=== PATIENT | female | born 1985 | race Caucasian/White ===

== ENCOUNTER → 2018-09-11 16:52 | Outpatient (CLI) | payer SELFPAY ==
[2018-09-11 15:06] VITALS: BMI 22.6
[2018-09-11 19:35] LABS: Chlamydia Trachomatis by PCR Negative (Negative); Neisserai gonorrhoeae by PCR Negative (Negative); Probe Check PASS; Sample Adequacy Control PASS; Specimen Processing Control PASS
[2018-09-17 03:06] LABS: HPV Genotype 16, Aptima Negative (Negative)
[2018-09-17 15:23] LABS: HPV APTIMA, High Risk Positive (Negative); HPV Genotype 18,45 Aptima Negative (Negative)
== END ==
PROVIDERS: Referring Provider Nurse Practitioner Women's Health; Visit Provider Nurse Practitioner Women's Health
DX: Z12.4 Encounter for screening for malignant neoplasm of cervix (principal); Z11.3 Encounter for screening for infections with a predominantly sexual mode of transmission
CPT/HCPCS: 87491; 87591; 87624; 88175; G0145

== ENCOUNTER → 2019-10-31 17:34 | Outpatient (CLI) | payer SELFPAY ==
[2018-09-11 15:06] VITALS: BMI 22.6
[2019-10-31 18:05] LABS: Absolute Lymphocyte Count 2.22 X10^3/uL (0.83-4.51); Absolute Neutrophil Count 4.2 X10^3/uL (2.0-7.7); Basophil% 1.4 % (0-1); Eosinophil# 0.08 X10^3/uL; Eosinophils% 1.1 % (0-5); Hematocrit 30.7 % (37-47); Hemoglobin 8.6 g/dL (12.0-15.0); Lymphocyte # 2.22 X10^3/ul (4.0); Mean Corpuscular Hgb 19.5 pg (27.0-32.0); Mean Corpuscular Volume 69.8 fL (81-99); NRBC Flagged by Analyzer 0 % (0-5); Neutrophil # 4.22 X10^3/uL (2.7-7.7); Neutrophil % 59.1 % (47-70); Platelet Count 399 K/mm3 (150-450); RBC Distribution Width CV 19.7 % (11.6-14.6); RBC Distribution Width SD 46.8 fl (35.1-43.9); White Blood Count 7.2 K/mm3 (4.4-11.0)
[2019-10-31 18:22] LABS: ALB/GLOB Ratio 0.9 RATIO (0.9-2.4); AST(SGOT) 14 U/L (15-37); Alanine Aminotransfer ALT/SGPT 19 U/L (13-56); Alkaline Phosphatase 39 U/L (45-117); Anion Gap 6 (5-15); BUN 10 mg/dL (7-18); BUN/Creat Ratio 12.6 RATIO (10-20); Calcium,Total 9.1 mg/dL (8.5-10.1); Chloride 108 mmol/L (98-107); Cholesterol 213 mg/dL (200); Creatinine, Serum 0.79 mg/dL (0.55-1.02); EST Glomerular Filtration Rate 87 mL/min (>60); Est Glom Filt Rate - Afr Amer 106 mL/min (>60); Globulin 4.4 g/dL (2.2-4.2); Glucose 95 mg/dL (74-106); High Density Lipoprotein 96 mg/dL; Iron 12 ug/dL (50-170); Potassium 3.7 mmol/L (3.5-5.1); Protein, Total 8.4 g/dL (6.4-8.2); Sodium Level 139 mmol/L (136-145); Thyroid Stim Hormone (TSH) 1.54 uIU/mL (0.358-3.74); Triglycerides 88 mg/dL; Very Low Density Lipoprotein 18 mg/dL (5-40)
== END ==
PROVIDERS: PCP Family Medicine; Referring Provider Family Medicine; Visit Provider Family Medicine
DX: L65.9 Nonscarring hair loss, unspecified (principal)
CPT/HCPCS: 36415; 80053; 80061; 83540; 84443; 85025

== ENCOUNTER → 2019-11-19 11:20 | Outpatient (CLI) | payer SELFPAY ==
[2018-09-11 15:06] VITALS: BMI 22.6
--- NOTE | 2019-11-19 11:28 | US_ITS ---
STUDY: ULTRASOUND OF THE FEMALE PELVIS - COMPLETE REASON FOR EXAM: Female, 34 years old. MENORRHAGIA CHRONIC LOW HEMOGLOBIN ANEMIA LMP: October 19, 2019. TECHNIQUE: Transabdominal and Transvaginal TECHNICAL QUALITY: Adequate. COMPARISON: None. FINDINGS: The uterus is anteverted and is in a midline position. The uterus measures 10.5 cm x 6.3 cm x 5.0 cm. There is a Nabothian cyst of the cervix. The endometrium measures 12 mm in thickness, and is hyperechoic. There is no demonstrated endometrial mass. 2 small uterine fibroids are seen measuring less than 1 cm. I.U.D. - The patient does not have an I.U.D. The right ovary is visualized. The right ovary measures 3.1 cm x 3.1 cm x 2.0 cm. There is no right ovarian cyst or ovarian mass. There is no visualized right adnexal mass or complex lesion. There is normal arterial and normal venous vascularity. The left ovary is visualized. The left ovary measures 3.4 cm x 3 cm x 2.4 cm. There is no left ovarian cyst or ovarian mass. There is no visualized left adnexal mass or complex lesion. There is normal arterial and normal venous vascularity. There is no fluid in the cul-de-sac. Polycystic ovary disease: No. US/Transvaginal Non- IMPRESSION: There are 2 subcentimeter uterine fibroids. Electronically Signed: Kuldeep Carrera, at 14:22 EDT , Service support ,
--- NOTE | 2019-11-19 11:28 | US_ITS ---
STUDY: ULTRASOUND OF THE FEMALE PELVIS - COMPLETE REASON FOR EXAM: Female, 34 years old. MENORRHAGIA CHRONIC LOW HEMOGLOBIN ANEMIA LMP: October 19, 2019. TECHNIQUE: Transabdominal and Transvaginal TECHNICAL QUALITY: Adequate. COMPARISON: None. FINDINGS: The uterus is anteverted and is in a midline position. The uterus measures 10.5 cm x 6.3 cm x 5.0 cm. There is a Nabothian cyst of the cervix. The endometrium measures 12 mm in thickness, and is hyperechoic. There is no demonstrated endometrial mass. 2 small uterine fibroids are seen measuring less than 1 cm. I.U.D. - The patient does not have an I.U.D. The right ovary is visualized. The right ovary measures 3.1 cm x 3.1 cm x 2.0 cm. There is no right ovarian cyst or ovarian mass. There is no visualized right adnexal mass or complex lesion. There is normal arterial and normal venous vascularity. The left ovary is visualized. The left ovary measures 3.4 cm x 3 cm x 2.4 cm. There is no left ovarian cyst or ovarian mass. There is no visualized left adnexal mass or complex lesion. There is normal arterial and normal venous vascularity. There is no fluid in the cul-de-sac. Polycystic ovary disease: No. US/Pelvic (Non ) IMPRESSION: There are 2 subcentimeter uterine fibroids. Electronically Signed: Kuldeep Carrera, at 14:22 EDT , Service support ,
== END ==
PROVIDERS: PCP Family Medicine; Referring Provider Nurse Practitioner Women's Health; Visit Provider Nurse Practitioner Women's Health
DX: N92.0 Excessive and frequent menstruation with regular cycle (principal); D64.9 Anemia, unspecified; D25.9 Leiomyoma of uterus, unspecified
CPT/HCPCS: 76830; 76856

== ENCOUNTER → 2020-02-11 | Outpatient (CLI) | payer SELFPAY ==
--- NOTE | 2020-02-11 | EMB_PTH ---
PATIENT: DALLAS DAVIDSON LOC: [facility] U#:[id number] AGE/SX: 34/F ROOM: RE02/11/[address]: BRYAN Santamaria : 1985 BED: DIS: 02/11/2020 SPEC #: [id number] RECD: 02/11/20 07:50 STATUS: MATHIEU HELM #: [id number] NOMI: 02/11/20 00:[address]: Michelle Bailon NP DEPT: SURGICAL PATHOLOGY RECD BY: Walker Bennett ENTERED: 02/12/20 07:50 SP TYPE: ENDOM BX/C SASHA DR: Dr. Emilio Saenz MD Tissues: Endometrium, NOS Procedures: Surgery Specimen Level IV HEADER OPERATION: Endometrial biopsy PRE-OP DIAGNOSIS: Abnormal uterine bleeding TISSUE SUBMITTED: Endometrial lining MICROSCOPIC DIAGNOSIS Endometrial biopsy: Proliferative endometrium. Chronic endometritis. Fragments of benign endocervical mucosa. SJ:eddie 02/13/20 COMMENT Case has been reviewed in consultation with Dr. Zambrano who concurs with the above diagnosis. IDC:AM MICROSCOPIC DESCRIPTION Slides are reviewed. GROSS DESCRIPTION Received is one container labeled with the patient's name and not further designated. The specimen consists of multiple fragments of hemorrhagic soft tissue that in aggregate measure 3 x 2.5 x 0.3 cm. The specimen is totally submitted in one cassette. / PALOMA:eddie 02/12/20 TC:3 CPT: 96096
[2020-02-11 11:31] VITALS: BMI 22.4
[2020-02-19 03:06] LABS: HPV Genotype 16, Aptima Negative (Negative)
[2020-02-20 13:49] LABS: HPV APTIMA, High Risk Positive (Negative); HPV Genotype 18,45 Aptima Negative (Negative)
== END | disposition home or self-care (01) ==
LOC: LABSPEC 15:41
PROVIDERS: PCP Family Medicine; Referring Provider Nurse Practitioner Women's Health; Visit Provider Nurse Practitioner Women's Health
DX: R87.810 Cervical high risk human papillomavirus (HPV) DNA test positive (principal); N85.8 Other specified noninflammatory disorders of uterus
CPT/HCPCS: 87624; 88175; 88305; G0145

== ENCOUNTER → 2020-05-12 12:35 | Outpatient (CLI) | payer SELFPAY ==
[2020-05-12 12:20] VITALS: BMI 22.6
[2020-05-12 13:57] LABS: HIV - WCH Non-Reactive (Nonreactive)
[2020-05-13 07:38] LABS: Rapid Plasmin Reagin (RPR) REACTIVE (NONREACTIVE)
[2020-05-13 08:36] LABS: HSV 2 IgG < 0.91 index (0.00-0.90)
[2020-05-15 03:06] LABS: Chlamydia By Nucleic Acid AMP Negative (Negative)
[2020-05-15 08:11] LABS: Gonococcus By Nucleic Acid AMP Negative (Negative)
== END ==
PROVIDERS: PCP Family Medicine; Referring Provider Nurse Practitioner Women's Health; Visit Provider Nurse Practitioner Women's Health
DX: Z11.3 Encounter for screening for infections with a predominantly sexual mode of transmission (principal)
CPT/HCPCS: 36415; 86592; 86695; 86696; 86703; 87491; 87591

== ENCOUNTER → 2020-05-13 08:53 | Outpatient (CLI) | payer SELFPAY ==
[2020-05-12 12:20] VITALS: BMI 22.6
[2020-05-17 16:08] LABS: Dilute Russell Viper Venom 47.9 sec (0.0-47.0); PTT-LA 31.8 sec (0.0-51.9); Thrombin Time 17.4 sec (0.0-23.0); dPT Confirm Ratio 0.92 Ratio (0.00-1.40)
[2020-05-17 17:13] LABS: Anti-Cardiolipin Ab, IgA, Qn < 9 APL U/mL (0-11); Anti-Cardiolipin Ab, IgG, Qn < 9 GPL U/mL (0-14); Anti-Cardiolipin Ab, IgM, Qn > 150 MPL U/mL (0-12); Beta-2-Glycoprotein I IgA <9 (0-25); Beta-2-Glycoprotein I IgG <9 (0-20); Beta-2-Glycoprotein I IgM >150 (0-32); Interpretation Comment: (.)
== END ==
PROVIDERS: PCP Family Medicine; Referring Provider Nurse Practitioner Women's Health; Visit Provider Nurse Practitioner Women's Health
DX: Z20.2 Contact with and (suspected) exposure to infections with a predominantly sexual mode of transmission (principal)
CPT/HCPCS: 36415; 86146; 86147

== ENCOUNTER → 2020-12-29 | Outpatient (CLI) | payer OTHER, SELFPAY ==
[2020-12-29 09:01] VITALS: BMI 22.9
[2021-01-03 12:30] LABS: HSV Culture Without Typing Positive (.)
== END | disposition home or self-care (01) ==
LOC: LABSPEC 12:15
PROVIDERS: PCP Family Medicine; Referring Provider Nurse Practitioner Women's Health; Visit Provider Nurse Practitioner Women's Health
DX: N90.89 Other specified noninflammatory disorders of vulva and perineum (principal)
CPT/HCPCS: 87255

== ENCOUNTER → 2021-02-04 08:30 | Outpatient (CLI) | payer OTHER, SELFPAY ==
[2020-12-29 09:01] VITALS: BMI 22.9
[2021-02-04 09:00] LABS: Absolute Lymphocyte Count 2.21 X10^3/uL (0.83-4.51); Absolute Neutrophil Count 5.1 X10^3/uL (2.0-7.7); Basophil# 0.05 X10^3/uL; Basophil% 0.6 % (0-1); Eosinophil# 0.13 X10^3/uL; Eosinophils% 1.6 % (0-5); Hematocrit 42.3 % (37-47); Hemoglobin 13.4 g/dL (12.0-15.0); Lymphocyte # 2.21 X10^3/ul (0.83-4.51); Lymphocyte % 27.6 % (19-41); Mean Corp Hgb Conc 31.7 g/dL (32-36); Mean Corpuscular Hgb 28.9 pg (27.0-32.0); Mean Corpuscular Volume 91.4 fL (81-99); Mean Platelet Vol. 11.5 fl (6.2-12.0); Monocyte# 0.51 X10^3/uL; Monocyte% 6.4 % (0-10); NRBC Flagged by Analyzer 0 % (0-5); Neutrophil # 5.09 X10^3/uL (2.7-7.7); Neutrophil % 63.4 % (47-70); Platelet Count 333 K/mm3 (150-450); RBC Distribution Width CV 14.9 % (11.6-14.6); RBC Distribution Width SD 49.6 fl (35.1-43.9); Red Blood Count 4.63 M/mm3 (4.2-5.4)
[2021-02-04 09:18] LABS: ALB/GLOB Ratio 0.9 RATIO (0.9-2.4); AST(SGOT) 12 U/L (15-37); Alanine Aminotransfer ALT/SGPT 17 U/L (13-56); Albumin, Serum 3.7 g/dL (3.2-5.0); Alkaline Phosphatase 35 U/L (45-117); Anion Gap 8 (5-15); BUN 11 mg/dL (7-18); BUN/Creat Ratio 12.7 RATIO (10-20); Chloride 106 mmol/L (98-107); Creatinine, Serum 0.86 mg/dL (0.55-1.02); EST Glomerular Filtration Rate 78 mL/min (>60); Est Glom Filt Rate - Afr Amer 95 mL/min (>60); Ferritin 21 ng/mL (8-252); Globulin 4.1 g/dL (2.2-4.2); Glucose 78 mg/dL (74-106); Iron 74 ug/dL (50-170); Iron Binding Capacity,Total 359 ug/dL (250-450); LDH 158 U/L (84-246); PERCENT IRON SATURATION 20.6 % (15.0-55.0); Potassium 4.1 mmol/L (3.5-5.1); Protein, Total 7.8 g/dL (6.4-8.2); Sodium Level 140 mmol/L (136-145)
[2021-02-04 16:54] LABS: Xtra Tube EP Lab EXTRA TUBE
[2021-02-05 17:07] LABS: Anti-Cardiolipin Ab, IgA, Qn < 9 APL U/mL (0-11); Anti-Cardiolipin Ab, IgG, Qn < 9 GPL U/mL (0-14); Anti-Cardiolipin Ab, IgM, Qn > 150 MPL U/mL (0-12)
== END ==
PROVIDERS: PCP Family Medicine; Referring Provider Internal Medicine Medical Oncology; Visit Provider Internal Medicine Medical Oncology
DX: R76.0 Raised antibody titer (principal); E61.1 Iron deficiency
CPT/HCPCS: 36415; 80053; 82728; 83540; 83550; 83615; 85025; 86147

== ENCOUNTER → 2021-02-24 12:05 | Outpatient (CLI) | payer OTHER, SELFPAY ==
[2021-02-24 11:36] VITALS: BMI 23.6
[2021-02-24 12:44] LABS: Prothrombin Time (Protime)PT. 12.5 SECONDS (11.7-14.9)
[2021-02-24 12:45] LABS: Partial Thromboplast Time 27.4 Seconds (24.1-36.2)
[2021-02-24 12:47] LABS: D-Dimer Quantitative (DVT/PE) 0.49 FEU/ug/m (0.27-0.49)
[2021-02-25 18:40] LABS: Treponema palladium Ab (FTA) Non Reactive (Non Reactive)
== END ==
PROVIDERS: PCP Family Medicine; Visit Provider Internal Medicine Medical Oncology
DX: R94.8 Abnormal results of function studies of other organs and systems (principal)
CPT/HCPCS: 36415; 85379; 85610; 85730; 86780

== ENCOUNTER → 2021-05-31 11:00 | Outpatient (CLI) | payer OTHER, SELFPAY ==
--- NOTE | 2021-05-31 11:01 | CT_ITS ---
STUDY: CT ABDOMEN AND PELVIS WITHOUT CONTRAST REASON FOR EXAM: Female, 35 years old. R/o kidney stones. Low back pain with radiation to the flank. RADIATION DOSAGE (If Supplied By Facility): CTDIvol = ( 6.32 ) mGy, DLP = ( 315.91 ) mGycm TECHNIQUE: Transaxial images were obtained from the dome of the diaphragm to the symphysis pubis without oral contrast, and without intravenous contrast. Sagittal and coronal images were reconstructed. Individualized dose optimization techniques were used for this CT. COMPARISON: None. FINDINGS: The visualized lung bases are unremarkable. The visualized portions of the heart are within normal limits. Normal liver. Normal gallbladder and extrahepatic biliary system. Normal spleen. Normal pancreas. Normal bilateral adrenal glands. Normal right kidney. Normal left kidney. Normal visualized stomach. Normal small intestine. Normal colon. The appendix is visualized and appears normal. Normal abdominal aorta. Normal inferior vena cava. Normal retroperitoneum. Normal urinary bladder. Small follicles are seen in the right ovary. There is a small umbilical hernia containing fat. Normal osseous structures. CT/Abdomen/Pelvis without Cont IMPRESSION: Normal unenhanced CT of the abdomen and pelvis. Electronically Signed: Kuldeep Carrera MD at 11:25 EDT , Service support ,
[2021-05-31 11:29] LABS: Absolute Lymphocyte Count 1.81 X10^3/uL (0.83-4.51); Absolute Neutrophil Count 4.7 X10^3/uL (2.0-7.7); Basophil# 0.05 X10^3/uL; Basophil% 0.7 % (0-1); Eosinophil# 0.11 X10^3/uL; Eosinophils% 1.5 % (0-5); Hematocrit 41.8 % (37-47); Hemoglobin 13.7 g/dL (12.0-15.0); Lymphocyte # 1.81 X10^3/ul (0.83-4.51); Lymphocyte % 25.5 % (19-41); Mean Corp Hgb Conc 32.8 g/dL (32-36); Mean Corpuscular Hgb 30.6 pg (27.0-32.0); Mean Corpuscular Volume 93.3 fL (81-99); Mean Platelet Vol. 11.3 fl (6.2-12.0); Monocyte# 0.39 X10^3/uL; Monocyte% 5.5 % (0-10); NRBC Flagged by Analyzer 0 % (0-5); Neutrophil # 4.73 X10^3/uL (2.7-7.7); Neutrophil % 66.5 % (47-70); Platelet Count 283 K/mm3 (150-450); RBC Distribution Width CV 13.7 % (11.6-14.6); Red Blood Count 4.48 M/mm3 (4.2-5.4); White Blood Count 7.1 K/mm3 (4.4-11.0)
[2021-05-31 11:42] LABS: Anion Gap 8 (5-15); BUN 11 mg/dL (7-18); BUN/Creat Ratio 14.8 RATIO (10-20); Calcium,Total 9.2 mg/dL (8.5-10.1); Chloride 104 mmol/L (98-107); Creatinine, Serum 0.74 mg/dL (0.55-1.02); EST Glomerular Filtration Rate 93 mL/min (>60); Est Glom Filt Rate - Afr Amer 113 mL/min (>60); Glucose 101 mg/dL (74-106); Sodium Level 139 mmol/L (136-145)
== END ==
PROVIDERS: PCP Family Medicine; Referring Provider Obstetrics & Gynecology; Visit Provider Obstetrics & Gynecology
DX: M54.50 Low back pain, unspecified (principal); R10.9 Unspecified abdominal pain
CPT/HCPCS: 36415; 74176; 80048; 85025; 87077; 87086; 87088

== ENCOUNTER → 2022-02-02 | Outpatient (CLI) | payer OTHER, SELFPAY ==
--- NOTE | 2022-02-02 12:00 | US_ITS ---
STUDY: ULTRASOUND OF THE FEMALE PELVIS - COMPLETE REASON FOR EXAM: Female, 36 years old. aub LMP: 01/13/2022 TECHNIQUE: Transabdominal and Transvaginal TECHNICAL QUALITY: Adequate. COMPARISON: Comparison is made with prior study dated 11/19/2019. FINDINGS: The uterus is anteverted and is in a midline position. The uterus measures 10.3 cm x 8.8 cm x 5.4 cm. Normal uterine cervix. The endometrium measures 16 mm in thickness, and is hyperechoic. There is no demonstrated endometrial mass. Heterogeneous echotexture of the uterine myometrium. Several fibroids are seen. The largest measures 2.2 cm x 2.4 cm x 1.9 cm. I.U.D. - The patient does not have an I.U.D. The right ovary is visualized. The right ovary measures 3.4 cm x 2.2 cm x 2.2 cm. There is no right ovarian cyst or ovarian mass. There is no visualized right adnexal mass or complex lesion. There is normal arterial and normal venous vascularity. The left ovary is visualized. The left ovary measures 2.9 cm x 2.8 cm x 2.8 cm. There is no left ovarian cyst or ovarian mass. There is no visualized left adnexal mass or complex lesion. There is normal arterial and normal venous vascularity. There is no fluid in the cul-de-sac. The pre void volume of the bladder was 449 ml. US/Pelvic (Non ) IMPRESSION: Enlarged heterogeneous uterus with multiple small fibroids. Electronically Signed: Kuldeep Carrera MD at 13:35 EDT ,
--- NOTE | 2022-02-02 12:00 | US_ITS ---
STUDY: ULTRASOUND OF THE FEMALE PELVIS - COMPLETE REASON FOR EXAM: Female, 36 years old. aub LMP: 01/13/2022 TECHNIQUE: Transabdominal and Transvaginal TECHNICAL QUALITY: Adequate. COMPARISON: Comparison is made with prior study dated 11/19/2019. FINDINGS: The uterus is anteverted and is in a midline position. The uterus measures 10.3 cm x 8.8 cm x 5.4 cm. Normal uterine cervix. The endometrium measures 16 mm in thickness, and is hyperechoic. There is no demonstrated endometrial mass. Heterogeneous echotexture of the uterine myometrium. Several fibroids are seen. The largest measures 2.2 cm x 2.4 cm x 1.9 cm. I.U.D. - The patient does not have an I.U.D. The right ovary is visualized. The right ovary measures 3.4 cm x 2.2 cm x 2.2 cm. There is no right ovarian cyst or ovarian mass. There is no visualized right adnexal mass or complex lesion. There is normal arterial and normal venous vascularity. The left ovary is visualized. The left ovary measures 2.9 cm x 2.8 cm x 2.8 cm. There is no left ovarian cyst or ovarian mass. There is no visualized left adnexal mass or complex lesion. There is normal arterial and normal venous vascularity. There is no fluid in the cul-de-sac. The pre void volume of the bladder was 449 ml. US/Transvaginal Non- IMPRESSION: Enlarged heterogeneous uterus with multiple small fibroids. Electronically Signed: Kuldeep Carrera MD at 13:35 EDT ,
== END | disposition home or self-care (01) ==
LOC: OPUS 11:57
PROVIDERS: PCP Family Medicine; Visit Provider Obstetrics & Gynecology
DX: N93.9 Abnormal uterine and vaginal bleeding, unspecified (principal); D25.1 Intramural leiomyoma of uterus
CPT/HCPCS: 76830; 76856

== ENCOUNTER 2022-03-07 11:54 | Observation (INO) | payer OTHER, SELFPAY ==
--- NOTE | 2022-03-06 16:05 | PCM.HP.BLA ---
History and Physical Intake Vital Signs ? 01/12/2213:53 02/23/2211:30 02/23/2211:34 Height 5 ft 6 in 5 ft 6 in 5 ft 6 in Weight: ? 142 lb 2 oz ? BMI ? 22.9 ? BP ? 128/76 H ? Intake Visit Reasons:?Pre op Allergies No Known Allergies Allergy (Verified 02/23/22 11:30) Medications ferrous sulfate 325 mg (65 mg iron) tablet 325 mg PO DAILY 04/07/20 [History Confirmed 02/23/22] valacyclovir 500 mg tablet (Valtrex) 500 mg PO DAILY #30 tabs 05/25/21 [Rx Confirmed 02/23/22] enoxaparin 40 mg/0.4 mL subcutaneous syringe (Lovenox) 40 mg (0.4 mL) subcut QDAY 30 days #12 mL 02/23/22 [Rx Confirmed 02/23/22] naproxen 500 mg tablet 500 mg PO BID-TID PRN pain #30 tabs 02/23/22 [Rx Confirmed 02/23/22] oxycodone-acetaminophen 5 mg-325 mg tablet (Percocet) 1 tab PO Q6H 7 days #10 tabs 02/23/22 [Rx Confirmed 02/23/22] Is last menstrual period known: Yes Last Menstral Period: 02/07/22 Post menopausal: No Patient : No : No [facility] Medical History? HPV test positive Vulvar lesion Surgical History? S/P Family History? Mother Hypertension Diabetes Social History? Smoking Status:? Never smoker alcohol intake:? current details:? weekends-2 beers substance use type:? does not use caffeine:? Yes what type of physical activity do you participate in:? running and other details: spinning frequency:? 3-4 times per week duration:? 45-60 minutes/day seatbelt use:? always do you feel safe at home:? Yes additional social history:? ? Patient works in lab at [employer] Pre op Details: DALLAS DAVIDSON is a 36 year old who presents for preop visit.? she had 1 cs and 10 cm uterus with 2 cm fibroid. Female Reproductive History Last Menstral Period: 02/07/22 Cycle Length: 21-35 Bleeding Duration: 7 Frequency of changing protection: hour associated symptoms: cramping Questions: metorrhagia: No, sexually active: Yes, dyspareunia: No and PCB: No Menopausal Symptoms: No hot flashes, No night sweats, No weight change, No mood changes, No difficulty concentrating, No sleep problems and No change in libido Pregancy History ? ? ? 2 ? Elective abortions ? Hx Para ? ? ? 2 ? Spontaneous abortions ? Hx # Term Pregnancies ? Ectopic pregnancies ? Hx # Pregnancies ? Multiple births ? # of living children ? Past Pregnancies Del. Date Name GA/Weeks Outcome Route Bth Weight Infant Gen Labor Lgth Anesthesia Del Locatn Provider FOB Unknown More-2009 ? Unknown Beatriz-2011 ? ROS Const Constitutional: Denies night sweats ENT ENT: Reports system reviewed and no additional complaints, except as documented Cardio Card: Denies chest pain Resp Resp: Denies cough or dyspnea GI GI: Reports as per HPI; Denies constipation, nausea or vomiting : Denies hot flashes or nipple discharge Musc Musc: Denies arthralgias, back pain or muscle weakness Skin Skin/Breast: Denies alopecia, change in hair, dry skin, breast mass, breast pain, breast skin changes or nipple discharge Neuro Neuro: Reports system reviewed and no additional complaints, except as documented Psych Psych: Denies change in libido or difficulty concentrating Endo Endo: Denies cold intolerance, excessive sweating, heat intolerance or polydipsia Familia/Lymph Hematologic/Lymphatic: Denies easy bleeding, Denies easy bruising and Denies lymphadenopathy Exam Const General: cooperative, healthy appearing, comfortable, no acute distress and well developed Orientation: alert [facility] Head: normal to inspection and normocephalic Ears: hearing grossly normal bilaterally and external ears normal Nose: external nose normal and nares normal Face and sinus: normal facial exam Neck Neck: normal visual inspection and no lymphadenopathy Thyroid: thyroid normal Chest Chest palpation & inspection: normal inspection of the chest Resp Effort & Inspection: normal respiratory effort Auscultation: clear to auscultation bilaterally Cardio Rate: regular rate Rhythm: regular rhythm Heart Sounds: S1 normal and S2 normal GI Inspection: normal to inspection and non-distended Palpation: soft and no hepatosplenomegaly General: bladder normal to palpation External Female Exam: normal external appearance and normal appearance of the urethra Urethra: normal appearance of the urethra, normal palpation and no discharge Speculum Exam - Vagina: normal appearance of the vagina and normal vaginal discharge Speculum Exam - Cervix: normal appearance of the cervix and nontender Bimanual Exam- Vagina & Uterus: normal bimanual exam, uterine size normal, bladder normal to palpation, uterine shape normal, No tender, uterine mobility normal, consistency normal, normal palpation and non-tender Bimanual Exam- Adnexa, other: normal adnexae, adnexae mobile, no masses and normal Pelvic Support: normal Musc Other: gross motor intact no deficits, full bilateral strength Skin General: no rashes or lesions noted Neuro General: patient alert, patient awake, moves all extremities and no focal motor deficits Motor: muscle tone normal throughout Extrem General: normal to inspection and no pedal edema Psych Appearance: grossly normal Mental Status: mental status grossly normal Affect: normal affect Speech and Movement: speech and movement normal Coding Level of Care Code No Charge Diagnoses Anti-cardiolipin antibody positive? R76.0 Abnormal uterine bleeding? N93.9 Intramural uterine fibroid? 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 PT/PTT, Fibrinogen level, D-dimers, SPEP, Cryoglobulin levels are normal. Positive RPR (2) Abnormal uterine bleeding: ?Status:?Acute ?Comment: plan LAVHBS cysto failed ocp.? 10cm uterus, 1 previous cs.? plan overnight stay (3) Intramural uterine fibroid: ?Status:?Acute ? ? ? Medications: New enoxaparin (Lovenox) 40 mg (0.4 mL) subcut QDAY 30 days 12 mL 12RF ? ? naproxen ?? administer with food or milk 500 mg? PO BID-TID PRN 30 tabs 2RF pain N93.9 - Abnormal uterine and vaginal bleeding, unspecified ? oxycodone-acetaminophen 5-325 mg (Percocet) 1 TAB? PO Q6H 7 days 10 tabs 0RF R10.2 - Pelvic and perineal pain ? Plan After discussing the patient's diagnosis and treatment plan options, patient wishes to proceed with surgical management.? I have discussed with the patient the risks, benefits, and alternatives of the procedure which include but are not limited to risks of anesthesia, bleeding, infection, possible damage to bowel, bladder, or surrounding vasculature which could lead to additional surgery to evaluate any complications.? Patient agrees to procedure and wishes to proceed.? ACOG/uptodate references given for additional information regarding procedure.? UPDATE- I have seen the patient and performed any clinically relevant updates to the history and physical exam. Debbie Robledo MD
[2022-03-07] VITALS (15 sets, daily range): BP systolic 101–122; BP diastolic 57–81; PULSE 60–82; RESP 16; TEMP 36.1–37.6; O2SAT 93–100; BMI 23.1
[2022-03-07] MEDS: Enoxaparin 40 MG/0.4 ML Syringe SC (07:30)
[2022-03-07] MEDS: Scopolamine 1mg/72hr Patch 1 PATCH TD (07:30)
[2022-03-07] MEDS: Lactated Ringers 1,000 ML 40 ML IV ×2 (07:30→11:16)
[2022-03-07] MEDS: dexAMETHasone 10 MG/ML Vial 8 MG IV (07:30)
[2022-03-07 09:00] LABS: Internal QC Validated? YES +Cl - CLEAR BKGD; Pregnancy, Urine Negative Negative
[2022-03-07 09:12] LABS: Absolute Lymphocyte Count 1.64 X10^3/uL (0.83-4.51); Absolute Neutrophil Count 3.9 X10^3/uL (2.0-7.7); Basophil# 0.06 X10^3/uL; Basophil% 0.9 % (0-1); Eosinophil# 0.26 X10^3/uL; Eosinophils% 4.1 % (0-5); Hematocrit 41.7 % (37-47); Hemoglobin 13.1 g/dL (12.0-15.0); Lymphocyte # 1.64 X10^3/ul (0.83-4.51); Lymphocyte % 25.6 % (19-41); Mean Corp Hgb Conc 31.4 g/dL (32-36); Mean Corpuscular Hgb 28.9 pg (27.0-32.0); Mean Corpuscular Volume 92.1 fL (81-99); Mean Platelet Vol. 12.2 fl (6.2-12.0); Monocyte# 0.56 X10^3/uL; Monocyte% 8.7 % (0-10); NRBC Flagged by Analyzer 0 % (0-5); Neutrophil # 3.87 X10^3/uL (2.7-7.7); Neutrophil % 60.4 % (47-70); Platelet Count 271 K/mm3 (150-450); RBC Distribution Width CV 13.9 % (11.6-14.6); RBC Distribution Width SD 47.5 fl (35.1-43.9); Red Blood Count 4.53 M/mm3 (4.2-5.4); White Blood Count 6.4 K/mm3 (4.4-11.0)
[2022-03-07] MEDS: Phenazopyridine 95 MG Tablet 190 MG PO (09:30)
[2022-03-07] MEDS: Acetaminophen 500 MG Tablet 1000 MG PO ×3 (09:31→23:47)
[2022-03-07] MEDS: Celecoxib 200 MG Capsule 400 MG PO (09:31)
[2022-03-07] MEDS: Gabapentin 600 MG Tablet PO (09:32)
[2022-03-07 09:35] LABS: Magnesium 2.1 mg/dL (1.6-2.6)
[2022-03-07] MEDS: Cefazolin 2 GM in 0.9% Normal Saline 100 ML IV (10:11)
--- NOTE | 2022-03-07 10:20 | HYST_PTH ---
PATIENT: DALLAS DAVIDSON LOC: [facility] U#:[id number] AGE/SX: 36/F ROOM: VT322 RE03/07/[address]: Dr. Debbie Robledo MD : 1985 BED: 1 DIS: 03/08/2022 SPEC #: [id number] RECD: 03/07/22 13:16 STATUS: MATHIEU HELM #: [id number] NOMI: 03/07/22 10:[address]: Debbie Robledo DEPT: SURGICAL PATHOLOGY RECD BY: Keya Tenorio ENTERED: 03/08/22 07:27 SP TYPE: HYSTERECT OTHR DR: Dr. Emilio Saenz MD Tissues: Uterus, NOS Procedures: Surgery Specimen Level V HEADER OPERATION: ERAS, hysterectomy, LAVH, salpingectomy, cystoscopy PRE-OP DIAGNOSIS: Anticardiolipin antibody positive, abnormal uterine bleeding, intramural uterine fibroid TISSUE SUBMITTED: Cervix, uterus, bilateral fallopian tubes MICROSCOPIC DIAGNOSIS Uterus, hysterectomy: Cervix ? mild chronic inflammation. Endometrium ? secretory endometrium with breakdown. Myometrium ? leiomyomas. Right fallopian tube ? benign paratubal cyst. Left fallopian tube ? benign paratubal cyst. AM:eddie 03/09/2022 MICROSCOPIC DESCRIPTION Slides are reviewed. GROSS DESCRIPTION Received in fixative is one container labeled with the patient's name and designated uterus. The specimen consists of a uterus with attached cervix and attached right and left fallopian tubes. The uterus with cervix measures 9.6 x 7 x 6.5 cm and weighs 159.3 gm. The ectocervix is unremarkable. The cervical os is oval in contour. The endocervical canal measures 3.2 cm in length. The triangular endometrial cavity measures 4 x 3 cm. The velvety, reddish-lawson endometrium measures up to 0.2 cm in thickness. The myometrium is distorted with multiple spherical rubbery nodules leiomyomas ranging in size from 0.5 to 2.3 cm in greatest dimension. The masses are submucosal, intramural and subserosal in location. The right and left fallopian tubes are similar in appearance with average lengths of 4.5 cm and average diameters of 0.8 cm. The fimbrial ends are identified on both fallopian tubes. The myometrium without masses measures 2.2 cm in average thickness. [employer] sections are submitted in 11 cassettes as follows: 1 - anterior cervix, 2 - posterior cervix, 3 - anterior uterine wall with myometrial mass, 4 - anterior uterine wall, 5 & 6 - posterior myometrial wall, 7 - largest myometrial mass, 8 - second largest myometrial mass, 9 - third largest myometrial mass, 10 - right fallopian tube and paratubal cyst, 11??left fallopian tube. / AM:eddie 03/08/2022 TC:1 CPT: 12219
[2022-03-07] MEDS: Bupivacaine 0.25% 30 ML Vial (10:35)
[2022-03-07 10:50] LABS: Bedside Glucose 80 mg/dL (74-106)
[2022-03-07] MEDS: Vasopressin 20 UNITS/ML Vial (10:55)
[2022-03-07] MEDS: Ondansetron 4 MG/2 ML Vial IV (11:52)
[2022-03-07] MEDS: Sugammadex Sodium 200 MG/2 ML VIAL IV (11:52)
--- NOTE | 2022-03-07 11:52 | PCM.OPRPT ---
Problems Associated Problem List Diagnoses (1) Anemia: (2) Abnormal uterine bleeding: (3) Anti-cardiolipin antibody positive: (4) Vulvar lesion: Report of Operation Date of Procedure: 03/07/22 Pre-Operative Diagnosis: AUB Post-Operative Diagnosis: same Surgery/Procedure Performed:: NADIA Surgeon: Debbie Robledo machine packaging technician: Sara Murrieta Type of Anesthesia: General Specimen's removed: uterus, tubes Drains: ch Estimated Blood Loss (mL): 250 Fluids Replaced: crystalloid Description of Procedure: Patient received preoperative antibiotics and SCDs were on preoperatively. Patient was taken back to the operating room and placed in the dorsal lithotomy position. General anesthesia was induced and patient was prepped and draped in normal sterile fashion. Uterine manipulator was placed inside the uterus and Ch catheter placed in the bladder. The umbilicus was grasped with towel clamps and an intraumbilical incision was made after injecting with quarter percent Marcaine and a Veress needle entered into the abdomen confirmed to be intra-abdominal with a low opening pressure. Abdomen was insufflated with CO2 gas and the Veress needle removed and the 5 mm trocar was placed under direct visualization without complication. Right and left lower quadrants were transilluminated and injected with quarter percent Marcaine and 5 mm ports placed under direct visualization. Pelvis was well visualized see operative findings for additional information. Bilateral fallopian tubes were identified and transected with the LigaSure device across the mesosalpinx to the level of the utero-ovarian ligament which was also transected with the LigaSure device. The broad ligament was opened up by transecting the round ligament bilaterally and skeletonizing the uterine vessels bilaterally and creating a bladder flap using the LigaSure device. The uterine arteries were transected bilaterally with good visualization of the bladder and the ureters were seen to be inferior lateral to the operative area. Attention was then paid to the vaginal portion of the procedure and the cervix was grasped with Mark clamps and circumferentially injected with dilute vasopressin. A circumferential incision was made and the vaginal mucosa was mobilized off posteriorly and the cul-de-sac entered into sharply and a longneck speculum placed. The anterior cul-de-sac was then identified and entered into sharply. The uterosacral ligaments were clamped cut and suture ligated with 0 Monocryl bilaterally followed by the cardinal ligaments which were clamped cut and suture ligated bilaterally with 0 Monocryl. The uterus serially descended and was removed without difficulty. Pelvic sidewall pedicles were checked and noted to have excellent hemostasis. The vaginal mucosa was reapproximated incorporating the posterior peritoneum. This was reapproximated using 0 Vicryl [id number] sutures. Excellent hemostasis was noted. The cystoscopy was then performed and bilateral ureteral strong spray was noted and the bladder was noted to have no abnormality or lesions seen. Ch catheter was replaced and then attention paid to the abdominal portion of the procedure again. The pelvis and cul-de-sac were well visualized and no significant active bleeding noted but some raw areas were seen on the peritoneum and therefore floseal was applied. Pressure was taken down and the areas visualized and noted of excellent hemostasis. All ports were removed under direct visualization without complication and the abdomen was desufflated of air. The instruments were removed from the abdomen and the vaginal sweep was negative. Port sites on the abdomen were closed with 4-0 Monocryl interrupted sutures and Steri's and windows were applied. She was awoken and taken recovery in stable condition. Grafts/Implants Used: none Complications none Admit VTE Documentation VTE Present on Admission: No VTE Mechan Device Prophylaxis: SCD's VTE Pharm Prophylaxis ordered?: Yes Multi Select Codes Urinary/Genital Urinary/Genital CPT Codes: 81747 Cystoscopy and 92895 LAVH+BS/O <250gr Uterus
--- NOTE | 2022-03-07 11:58 | DCINST_ITS ---
Discharge Instructions Diet Discharge Diet: No restrictions Activity May resume sexual activity in: 6 weeks Weight Bearing Status: Full weight bearing Dressing / Incision Call your doctor if your incision/area has: Continuous Slow Oozing, Sudden Increased Bleeding, Increased Pain/ Swelling, Increased Redness and Foul Smelling Discharge Call your doctor if you observe: Fever of 101 or Higher, Using more than 1 pad per hour, Shortness of breath, Chest pain and Uncontrolled pain Suture Line Care: Avoid Pulling/Pushing and Avoid Pinching/Bending Remove Dressing in: 1 week (if present) Cleanse incision/area with: Soap & Water and Keep Dressing Clean & Dry Follow Up Care Please Follow Up With: Debbie Robledo MD When: Call to make an appointment with your doctor for a postop visit in 2 and 6 weeks. Test Results: Test results from this visit will be discussed in further detail at your follow- up appointment, if applicable. Discharge Plan Admission Attending Provider: Debbie Robledo Primary Care Provider: Emilio Saenz Discharge Orders/Prescriptions Prescriptions: New oxycodone-acetaminophen [Percocet] 5-325 mg tablet 1 tab PO Q6H PRN (Reason: pain) 7 Days Qty: 20 0RF No Action ferrous sulfate 325 mg (65 mg iron) tablet 325 mg PO DAILY enoxaparin [Lovenox] 40 mg/0.4 mL syringe 40 mg subcut QDAY 30 Days Qty: 12 12RF naproxen 500 mg tablet 500 mg PO BID-TID PRN (Reason: pain) Qty: 30 2RF Rx Instructions: administer with food or milk valacyclovir [Valtrex] 500 mg tablet 500 mg PO DAILY Qty: 30 12RF Referrals / Follow Up: Emilio Saenz MD [Primary Care Provider] - Disposition Disposition (needs filled in before D/C Order can be placed): Home, Self Care
[2022-03-07] MEDS: Lactated Ringers 1,000 ML 70 ML IV (14:01)
[2022-03-07] MEDS: Ketorolac 30 MG/ML Syringe IV ×2 (15:35→21:50)
[2022-03-07] MEDS: Ondansetron ODT 4 MG Tablet PO (18:55)
[2022-03-07] MEDS: oxyCODONE 5 MG Tablet PO (19:47)
[2022-03-07] MEDS: Docusate Sodium 100 MG Capsule PO (21:50)
[2022-03-07] MEDS: 0.9% Saline Lock 10 ML Syringe IV (21:51)
[2022-03-08] MEDS: 0.9% Saline Lock 10 ML Syringe IV (05:47)
[2022-03-08] MEDS: Acetaminophen 500 MG Tablet 1000 MG PO (05:47)
[2022-03-08] MEDS: Ketorolac 30 MG/ML Syringe IV (05:47)
[2022-03-08 06:59] LABS: Hematocrit 34.7 % (37-47); Mean Corp Hgb Conc 31.7 g/dL (32-36); Mean Corpuscular Hgb 28.6 pg (27.0-32.0); Mean Corpuscular Volume 90.4 fL (81-99); Mean Platelet Vol. 12.8 fl (6.2-12.0); Platelet Count 209 K/mm3 (150-450); RBC Distribution Width CV 14.1 % (11.6-14.6); RBC Distribution Width SD 46.6 fl (35.1-43.9); Red Blood Count 3.84 M/mm3 (4.2-5.4)
--- NOTE | 2022-03-08 07:37 | PN.OBGYN_ITS ---
Subjective Subjective patient recovering well, denies CP, SOB, N, or V. patient is ambulating, voiding ,tolerating adequate po, and pain is controlled with oral medications. Objective Data Objective Data Vital Signs: Vital Signs Temp Pulse Resp BP Pulse Ox O2 Del Method O2 Flow Rate 98.5 F 72 16 107/69 100 Room Air 4 03/07/22 19:15 03/07/22 19:15 03/07/22 19:15 03/07/22 19:15 03/07/22 19:15 03/07/22 19:15 03/07/22 14:15 Oxygen Flow Rate (L/min) 4 Oxygen Delivery Method Room Air Weight: 143 lb 4.807 oz Body Mass Index (BMI) 23.1 Intake & Output: Intake and Output for Last 24 Hours 03/06/22 03/07/22 03/08/22 23:59 23:59 23:59 Intake Total 2732 / 2732 1000 / 1000 Output Total 1370 / 1670 800 / 800 Balance 1362 / 1062 200 / 200 Lab / Micro Data Result Diagrams: 03/08/22 06:05 Labs: Laboratory Results - last 24 hr 03/07/22 05:51: Magnesium 2.1 03/07/22 08:17: Urine Test Negative 03/07/22 09:05: WBC 6.4, RBC 4.53, Hgb 13.1, Hct 41.7, MCV 92.1, MCH 28.9, MCHC 31.4 L, RDW Std Deviation 47.5 H, RDW Coeff of [place] 13.9, Plt Count 271, MPV 12.2 H, Immature Gran % (Auto) 0.300, Neut % (Auto) 60.4, Lymph % (Auto) 25.6, [place] % (Auto) 8.7, Eos % (Auto) 4.1, Baso % (Auto) 0.9, Absolute Neuts (auto) 3.9, Absolute Lymphs (auto) 1.64, Nucleated RBC % 0 03/07/22 09:05: Blood Type A POSITIVE, Antibody Screen NEGATIVE 03/07/22 09:51: POC Glucose 80 03/08/22 06:05: WBC 12.0 H, RBC 3.84 L, Hgb 11.0 L, Hct 34.7 L, MCV 90.4, MCH 28.6, MCHC 31.7 L, RDW Std Deviation 46.6 H, RDW Coeff of [place] 14.1, Plt Count 209, MPV 12.8 H Physical Exam Const alert, oriented x3 and no apparent distress Resp normal respiratory effort GI soft to palpation and non-distended Inspection: incision other (dressing dry and intact) Narrative: Minimal drainage on peripad Bladder / Kidney Exam: catheter in place Assessment & Plan (1) S/P laparoscopic assisted vaginal hysterectomy (LAVH): COMMENT: LAV AUB (2) Anti-cardiolipin antibody positive: COMMENT: Asymptomatic, PT/PTT, Fibrinogen level, D-dimers, SPEP, Cryoglobulin levels are normal. Positive RPR PLAN: Plan patient is s/p LAVH POD 1 1. routine ERAS protocol postop care- increase ambulation, encourage oral intake and oral control of pain. lovenox and scds for dvt prophylaxis, patient stable for discharge to home. Plans lovenox postop at least 2 weeks
[2022-03-08] MEDS: Docusate Sodium 100 MG Capsule PO (07:46)
[2022-03-08] MEDS: Enoxaparin 40 MG/0.4 ML Syringe SC (07:46)
[2022-03-08 08:35] VITALS: O2SAT 99
[2022-03-08 09:01] VITALS: BP 102/66; PULSE 62; RESP 16; TEMP 37.3; O2SAT 98
== END 2022-03-08 10:35 | disposition home or self-care (01) ==
LOC: SDC 12:37 → MS3 12:37
PROVIDERS: Anesthesiology; Admitting Provider Obstetrics & Gynecology; PCP Family Medicine; Referring Provider Obstetrics & Gynecology; Visit Provider Obstetrics & Gynecology
PROC: 0UT9FZZ Resection of Uterus, Via Natural or Artificial Opening With Percutaneous Endoscopic Assistance (ICD-10-PCS; CPT 58552; principal; 2022-03-07 09:55)
DX: N93.9 Abnormal uterine and vaginal bleeding, unspecified (principal); D64.9 Anemia, unspecified; D25.1 Intramural leiomyoma of uterus; Z79.899 Other long term (current) drug therapy; R76.0 Raised antibody titer; Z87.42 Personal history of other diseases of the female genital tract
CPT/HCPCS: 58552; 00840; 36415; 81025; 82962; 83735; 85025; 85027; 86850; 86900; 86901; 88307; 94762; 96372; 96374; 96376; 99218; 99251; J7120; A4216; G0378; G0463; J2405; J3475

== ENCOUNTER → 2022-03-21 | Outpatient (CLI) | payer OTHER, SELFPAY | END | disposition home or self-care (01) | LOC: LABSPEC 03-23 13:33 | PROVIDERS: PCP Family Medicine; Visit Provider Nurse Practitioner Women's Health | DX: R30.9 Painful micturition, unspecified (principal) | CPT/HCPCS: 87086 ==

== ENCOUNTER → 2023-12-13 | Outpatient (CLI) | payer SELFPAY ==
[2023-12-13 10:51] LABS: Thyroid Stim Hormone (TSH) 2.33 uIU/mL (0.358-3.74)
[2023-12-13 10:53] LABS: Vitamin D,25 Hydroxy 33.9 ng/mL
== END | disposition home or self-care (01) ==
PROVIDERS: PCP Family Medicine; Referring Provider Nurse Practitioner Women's Health; Visit Provider Nurse Practitioner Women's Health
DX: Z13.21 Encounter for screening for nutritional disorder (principal); Z13.29 Encounter for screening for other suspected endocrine disorder
CPT/HCPCS: 36415; 82306; 84443

== ENCOUNTER → 2024-12-24 | Outpatient (CLI) | payer BC, SELFPAY ==
--- NOTE | 2024-12-24 14:15 | BI_ITS ---
EXAM: SCRN MAMM (CAD)W/JENNIFER BILAT DATE: 12/24/2024
== END | disposition home or self-care (01) ==
LOC: OPBI 13:47
PROVIDERS: PCP Family Medicine; Referring Provider Nurse Practitioner Women's Health; Visit Provider Nurse Practitioner Women's Health
DX: Z12.31 Encounter for screening mammogram for malignant neoplasm of breast (principal)
CPT/HCPCS: 77063; 77067

== ENCOUNTER → 2025-03-24 | Outpatient (CLI) | payer BC, SELFPAY ==
--- NOTE | 2025-03-24 08:47 | US_ITS ---
PROCEDURE: BREAST LIMITED UNILATERAL 03/24/2025 REASON FOR EXAM: 39-year-old female presents with palpable concern in the left breast. COMPARISON: Mammogram 12/24/2024. TECHNIQUE: BREAST LIMITED UNILATERAL FINDINGS: Ultrasound performed of the patient's palpable area of concern in the upper- outer left breast demonstrates no suspicious sonographic findings. There are no solid masses or abnormal cystic elements. US/Breast Limited Unilateral IMPRESSION: There are no suspicious findings in the area of patient's palpable concern in t he left breast. BI-RADS 1: NEGATIVE RECOMMENDATION: Routine annual follow-up in 1 Year. The time of the next scree hua exam for this patient is December 2025. Reading Location: [id number]
== END | disposition home or self-care (01) ==
PROVIDERS: PCP Family Medicine; Referring Provider Obstetrics & Gynecology; Visit Provider Obstetrics & Gynecology
DX: N63.20 Unspecified lump in the left breast, unspecified quadrant (principal)
CPT/HCPCS: 76642